=== PATIENT | male | born 1950 | race Caucasian/White ===

== ENCOUNTER 2018-05-26 10:10 | Emergency (ER) | payer MEDICARE, OTHER ==
--- NOTE | 2018-05-26 10:29 | ED.PDOC ---
History of Present Illness - General Chief Complaint: Blood Pressure Problem Stated Complaint: shari blood pressure Time Seen by Provider: 05/26/18 10:17 Source: patient Exam Limitations: no limitations - History of Present Illness Initial Comments: Stu Ovalle 68 y/o male stated that his blood pressure went up this AM systolic BP -200 and also stated that he had left shoulder discomfort which he had for the last several years then ekg done at his [facility] office showing-st segment straightening lateral leads.Has history of DM@ on insulin pump and HTN.Presently while in ER denies headache,blurry vision ,chest pains,his left shoulder feels fine.No diaphoresis ,no n/v,no sob. Timing/Duration: 7-24 hours Severity: moderate Location: shoulder Activities at Onset: none Prior Chest Pain/Cardiac Workup: no prior chest pain, cardiolye scan - 2012 Improving Factors: nothing Worsening Factors: nothing Nitro Today/Relief: no nitro taken today Aspirin Treatment Today: 325 mg x 1, provided by ED Associated Symptoms: denies symptoms Allergies/Adverse Reactions: Allergies Insulin Adverse Reaction (Verified 05/26/18 10:37) Home Medications: Ambulatory Orders Human Insulin Aspart [Novolog] 1 each SC DAILY 05/26/18 Lisinopril [Lisinopril] 20 mg PO BID 05/26/18 Ranitidine HCl [Zantac 75] 1 each PO DAILY 05/26/18 Simvastatin [Simvastatin] 40 mg PO DAILY 05/26/18 Review of Systems - Review of Systems Constitutional: States: no symptoms reported EENTM: States: no symptoms reported Respiratory: States: no symptoms reported Cardiology: States: no symptoms reported Gastrointestinal/Abdominal: States: no symptoms reported Genitourinary: States: no symptoms reported Musculoskeletal: States: see HPI Skin: States: no symptoms reported Neurological: States: no symptoms reported Past Medical History (General) - Patient Medical History Hx Hypertension: Yes Hx Diabetes: Yes Surgical History: other - righ carotid endarterectomy,shoulder,hemoorhoidectomy, vasectomy,feet,back,colonoscopy - Social History Hx Alcohol Use: No Hx Substance Use: No Hx Substance Use Treatment: No Hx Physical Abuse: No Hx Emotional Abuse: No Hx Suspected Abuse: No Family Medical History - Family History Mother Family History: Unknown Hx Family Hypertension: Yes - dad ,brothers Hx Cardiac Disease: Yes - dad,brothers-[place] Hx Family Diabetes: Yes - dad Physical Exam - Physical Exam General Appearance: Alert, Comfortable, No apparent distress Eyes, Ears, Nose, Throat Exam: normal ENT inspection, pharynx normal Neck: non-tender, full range of motion, supple, normal inspection Respiratory: chest non-tender, lungs clear, normal breath sounds, no respiratory distress Cardiovascular/Chest: normal peripheral pulses, regular rate, rhythm, no murmur Peripheral Pulses: radial,right: 2+, radial,left: 2+ Gastrointestinal/Abdominal: normal bowel sounds, non tender, soft, no organomegaly Extremity: normal range of motion, non-tender, normal inspection, no pedal edema , no calf tenderness Neurologic: alert, oriented x 3 Skin Exam: normal color, warm/dry Progress - Progress Progress: 05/26/18 11:28 Vital Signs - 8 hr 05/26/18 10:15 Temperature 97.3 F L Pulse Rate [ 63 pulse ox] Respiratory 16 Rate Blood Pressure 183/95 [Left Arm] O2 Sat by Pulse 98 Oximetry - Results/Orders Results/Orders: 05/26/18 10:30 IV Care:Saline Lock per Protoc QSHIFT EKG STAT Laboratory Results - last 24 hr 05/26/18 05/26/18 05/26/18 10:58 12:15 12:32 WBC 8.5 RBC 4.70 Hgb 14.0 Hct 42.7 MCV 91.0 MCH 29.8 MCHC 32.8 L RDW 15.0 H Plt Count 230 MPV 9.6 Absolute Neuts (auto) 6.50 Absolute Lymphs (auto) 1.10 Absolute Monos (auto) 0.70 Absolute Eos (auto) 0.10 Absolute Basos (auto) 0.10 Neutrophils % 76.2 Lymphocytes % 13.0 L Monocytes % 8.1 Eosinophils % 1.7 Basophils % 1.0 PT 9.2 INR 0.92 PTT (SP) 27.6 Sodium 136 Potassium 4.1 Chloride 102 Carbon Dioxide 28 Anion Gap 10.1 L BUN 19 H Creatinine 1.93 H BUN/Creatinine Ratio 9.8 L POC Glucose Random Glucose 186 H Serum Osmolality 279.1 Calcium 9.3 Magnesium 2.0 Total Bilirubin 0.6 Direct Bilirubin 0.1 Indirect Bilirubin 0.5 AST 23 ALT 18 Alkaline Phosphatase 65 Creatine Kinase 53 CK-MB (CK-2) 1.6 CK-MB (CK-2) % Not Reportable Troponin I < 0.02 < 0.02 B-Natriuretic Peptide 91.0 Serum Total Protein 7.0 Albumin 3.4 Urine Color Yellow Urine Appearance Clear Urine pH 7.0 Ur Specific [place] 1.015 Urine Protein 100 H Urine Glucose (UA) Negative Urine Ketones Negative Urine Blood Negative Urine Nitrite Negative Urine Bilirubin Negative Urine Urobilinogen 0.2 Ur Leukocyte Esterase Negative Urine RBC 0-1 Urine WBC 0 Ur Epithelial Cells 0 Urine Bacteria 0 05/26/18 14:51 WBC RBC Hgb Hct MCV MCH MCHC RDW Plt Count MPV Absolute Neuts (auto) Absolute Lymphs (auto) Absolute Monos (auto) Absolute Eos (auto) Absolute Basos (auto) Neutrophils % Lymphocytes % Monocytes % Eosinophils % Basophils % PT INR PTT (SP) Sodium Potassium Chloride Carbon Dioxide Anion Gap BUN Creatinine BUN/Creatinine Ratio POC Glucose 50 L Random Glucose Serum Osmolality Calcium Magnesium Total Bilirubin Direct Bilirubin Indirect Bilirubin AST ALT Alkaline Phosphatase Creatine Kinase CK-MB (CK-2) CK-MB (CK-2) % Troponin I B-Natriuretic Peptide Serum Total Protein Albumin Urine Color Urine Appearance Urine pH Ur Specific [place] Urine Protein Urine Glucose (UA) Urine Ketones Urine Blood Urine Nitrite Urine Bilirubin Urine Urobilinogen Ur Leukocyte Esterase Urine RBC Urine WBC Ur Epithelial Cells Urine Bacteria - EKG/XRAY/CT EKG: Sinus, nonspecific ST T wave Chg Comments: HR-62 XRAY: chest - no acute abnormality Departure - Departure Clinical Impression: Uncontrolled hypertension, Diabetes 1.5, managed as type 1, CKD (chronic kidney disease) stage 3, GFR 30-59 ml/min Limb pain Qualifiers: Extremity pain location: upper arm Laterality: left Qualified Code(s): M79.622 - Pain in left upper arm Time of Disposition: 15:33 Disposition: Admit Patient Condition: Fair Departure Forms: Patient Portal Self Enrollment Referrals: VIKKI CLEMENT MD [Primary Care Provider] - 1-2 Weeks Home Medications: Ambulatory Orders Human Insulin Aspart [Novolog] 1 each SC DAILY 05/26/18 Lisinopril [Lisinopril] 20 mg PO BID 05/26/18 Ranitidine HCl [Zantac 75] 1 each PO DAILY 05/26/18 Simvastatin [Simvastatin] 40 mg PO DAILY 05/26/18 Decision To Admit - Decistion To Admit Decision to Admit Reason: Admit from ER Decision to Admit Date: 05/26/18 - D/W -ana Norton;Festus Johnson -SEBLE/Hospitalist Decision to Admit Time: 15:34
--- NOTE | 2018-05-26 10:44 | RAD ---
Procedure: XR CHEST 1 VIEW Exam Date: 05/26/2018 Ordering Provider: Oswald Contreras Clinical Indication: high blood pressure Comparison: 02/02/2016 Findings: Cardiomediastinal silhouette is within normal limits. No focal lung consolidation. No pleural effusion. No pneumothorax. No acute osseous abnormality. Impression: 1. No acute abnormality in the chest. Electronically signed by: Shmuel Calderon MD 05/26/2018 10:42 AM [facility]
[2018-05-26] MEDS: amLODIPine BESYLATE 5 MG TAB PO ONE (11:48)
[2018-05-26] MEDS: ASPIRIN (CHEWABLE) 81 MG TAB PO ONE (11:48)
[2018-05-26 15:22] VITALS: O2SAT 98
[2018-05-26] MEDS: hydrALAZINE HCl 20 MG/ML VIAL IV ONE (15:35)
[2018-05-26 17:14] VITALS: BP 176/82; TEMP 98.2
== END 2018-05-26 17:41 | disposition short-term general hospital (02) ==
LOC: ER 10:10 → MS 15:52 → UNDOADMOB 15:52 → ER 17:41
DX: I12.9 Hypertensive chronic kidney disease with stage 1 through stage 4 chronic kidney disease, or unspecified chronic kidney disease (principal); M25.512 Pain in left shoulder; E10.22 Type 1 diabetes mellitus with diabetic chronic kidney disease; N18.3 Chronic kidney disease, stage 3 (moderate); Z88.8 Allergy status to other drugs, medicaments and biological substances; Z79.899 Other long term (current) drug therapy; Z79.4 Long term (current) use of insulin

== ENCOUNTER → 2018-12-23 | Outpatient (CLI) | payer MEDICARE, OTHER | LOC: GMAE 15:01 | PROVIDERS: ATTEND Family Medicine | DX: R10.13 Epigastric pain (principal) ==

== ENCOUNTER 2019-01-23 05:38 | Day surgery (SDC) | payer MEDICARE, OTHER ==
[2019-01-23] MEDS ORDERED: LACTATED RINGERS 1,000 ML ONE (06:52)
[2019-01-23 07:44] VITALS: BP 151/65; O2SAT 95
== END 2019-01-23 08:30 | disposition home or self-care (01) ==
LOC: AMB 05:38
PROVIDERS: ATTEND Surgery
DX: R10.9 Unspecified abdominal pain (principal); E78.5 Hyperlipidemia, unspecified; I10 Essential (primary) hypertension; E11.9 Type 2 diabetes mellitus without complications; F17.210 Nicotine dependence, cigarettes, uncomplicated; Z88.8 Allergy status to other drugs, medicaments and biological substances; Z79.82 Long term (current) use of aspirin; Z79.4 Long term (current) use of insulin; Z79.899 Other long term (current) drug therapy; Z53.9 Procedure and treatment not carried out, unspecified reason
CPT/HCPCS: 36416; 82948; J7120

== ENCOUNTER 2019-04-06 11:08 | Emergency (ER) | payer MEDICARE, OTHER ==
[2019-04-06 11:48] VITALS: TEMP 98.1
--- NOTE | 2019-04-06 12:13 | ED.PDOC ---
History of Present Illness - General Chief Complaint: Neuro Symptoms/Deficits Stated Complaint: Altered mental status Time Seen by Provider: 04/06/19 11:17 - History of Present Illness Initial Comments: 69-year-old male positive past history presents via EMS to the ED complaining of 3 days of expressive aphasia. He describes it as being able answer questions and know what he wants to say being able to see it in his mind but unable to express it verbally. Denies any focal weakness. Patient denies any history of stroke. He denies any associated chest pain, shortness of breath, fever/chills, nausea/vomiting, and/or acute changes in bowels or urination. Patient is otherwise healthy with no other signs symptoms or complaints. Allergies/Adverse Reactions: Allergies Insulin Adverse Reaction (Verified 05/26/18 15:48) patient states causes itching, takes Zantac BID for reaction Home Medications: Ambulatory Orders Human Insulin Aspart [Novolog] 1 each SC DAILY 05/26/18 Lisinopril 20 mg PO BID 05/26/18 Ranitidine HCl [Zantac 75] 1 each PO DAILY 05/26/18 Simvastatin 40 mg PO DAILY 05/26/18 Review of Systems - Review of Systems Constitutional: Denies: chills, fever EENTM: Denies: blurred vision, double vision Respiratory: Denies: cough, short of breath Cardiology: Denies: chest pain, palpitations Gastrointestinal/Abdominal: Denies: abdominal pain, nausea, vomiting Genitourinary: Denies: dysuria, frequency Musculoskeletal: Denies: back pain, muscle pain Skin: Denies: change in color, rash Neurological: States: other - expressive aphasia by patient description. Denies: headache, numbness Endocrine: Denies: flushing Past Medical History (General) - Patient Medical History Hx Stroke: No Hx Asthma: Yes Hx Cardiac Disorders: Yes - Hypercholesterolemia Hx Congestive Heart Failure: No Hx Hypertension: Yes Hx Thyroid Disease: Yes - Hyperthyroidism Hx Diabetes: Yes Hx Gastroesophageal Reflux: Yes Hx MRSA: No - Vaccination History Hx Influenza Vaccination: No Hx Pneumococcal Vaccination: Yes - Social History Hx Tobacco Use: Yes Hx Alcohol Use: Yes Hx Substance Use: No Hx Substance Use Treatment: No Hx Depression: No Hx Physical Abuse: No Hx Emotional Abuse: No Hx Suspected Abuse: No Family Medical History - Family History Mother Family History: Unknown Hx Family Hypertension: Yes - dad ,brothers Hx Cardiac Disease: Yes - dad,brothers-[place] Hx Family Diabetes: Yes - dad Physical Exam - Physical Exam General Appearance: Alert, Anxious Eye Exam: bilateral normal ENT Exam: normal ENT inspection Neck: full range of motion, supple Respiratory: lungs clear, normal breath sounds, no respiratory distress, no accessory muscle use Cardiovascular/Chest: normal peripheral pulses, regular rate, rhythm, no edema, no JVD, no murmur Gastrointestinal/Abdominal: normal bowel sounds, non tender, soft Back Exam: normal inspection, no CVA tenderness Extremities Exam: non-tender, normal range of motion Mental Status: alert, oriented x 3 customs compliance specialist Exam: normal hearing, normal speech, PERRL Coordination/Gait: normal finger to nose, negative Romberg's sign Motor/Sensory: no motor deficit, no sensory deficit, no pronator drift Skin Exam: normal color, warm/dry Comments: NIHSS scale score:1 Progress - Progress Progress: Dr. Ronald Mei D.O. [id number] presents with concern for stroke and hypertensive urgency/emergency. We'll order labs, CT head as well as CT angiography of head, EKG, start nicardipine drip, and continue to monitor/process. Patient will likely require admission versus transfer. EKG: read @1136: Sinus isidra @52, nl axis, intervals wnl, no ST elevations/depressions, nonspecific ST/T-wave changes. No STEMI. No significant changes concerning for acute ischemia when compared with 05/26/2018 EKG. 04/06/19 12:14 04/06/19 13:19 Consulted with oncall physician for accepting pt to ICU at [facility]. We discussed pt's case in ED along with current findings and diagnosis of acute ICH and hypertensive emergency. He accepts pt for transfer. - Results/Orders Results/Orders: 04/06/19 11:48 Hold Metformin x 48Hrs [id number] 04/06/19 12:00 EKG STAT Laboratory Results - last 24 hr 04/06/19 04/06/19 04/06/19 11:39 11:39 11:39 WBC 9.2 RBC 4.07 L Hgb 12.0 L Hct 36.5 L MCV 89.6 MCH 29.4 MCHC 32.8 L RDW 15.9 H Plt Count 213 MPV 9.8 Absolute Neuts (auto) 7.50 H Absolute Lymphs (auto) 0.90 L Absolute Monos (auto) 0.70 Absolute Eos (auto) 0.10 Absolute Basos (auto) 0.00 Neutrophils % 81.0 H Lymphocytes % 9.5 L Monocytes % 8.1 Eosinophils % 0.9 L Basophils % 0.5 Sodium 136 Potassium 4.1 Chloride 99 L Carbon Dioxide 23 Anion Gap 18.1 H BUN 32 H Creatinine 3.34 H BUN/Creatinine Ratio 9.6 L POC Glucose Random Glucose 231 H Serum Osmolality 286.2 Calcium 8.9 Magnesium 2.1 Total Bilirubin 0.9 AST 17 ALT 19 Alkaline Phosphatase 91 Troponin I Serum Total Protein 7.1 Albumin 3.3 Globulin 3.8 H Albumin/Globulin Ratio 0.9 L TSH 4.71 Urine Color Urine Appearance Urine pH Ur Specific [place] Urine Protein Urine Glucose (UA) Urine Ketones Urine Blood Urine Nitrite Urine Bilirubin Urine Urobilinogen Ur Leukocyte Esterase Urine RBC Urine WBC Ur Epithelial Cells Amorphous Sediment Urine Bacteria 04/06/19 04/06/19 04/06/19 11:39 11:44 11:48 WBC RBC Hgb Hct MCV MCH MCHC RDW Plt Count MPV Absolute Neuts (auto) Absolute Lymphs (auto) Absolute Monos (auto) Absolute Eos (auto) Absolute Basos (auto) Neutrophils % Lymphocytes % Monocytes % Eosinophils % Basophils % Sodium Potassium Chloride Carbon Dioxide Anion Gap BUN Creatinine BUN/Creatinine Ratio POC Glucose 223 H Random Glucose Serum Osmolality Calcium Magnesium Total Bilirubin AST ALT Alkaline Phosphatase Troponin I 0.02 Serum Total Protein Albumin Globulin Albumin/Globulin Ratio TSH Urine Color Yellow Urine Appearance Clear Urine pH 5.5 Ur Specific [place] 1.025 Urine Protein >=300 H Urine Glucose (UA) 100 H Urine Ketones Negative Urine Blood Trace-intact H Urine Nitrite Negative Urine Bilirubin Negative Urine Urobilinogen 0.2 Ur Leukocyte Esterase Negative Urine RBC 1-3 Urine WBC 0-1 Ur Epithelial Cells 0-1 Amorphous Sediment Trace Urine Bacteria Rare all CT imaging and radiology reads reviewed. Stroke Information - Onset of Symptoms Symptoms of Stroke: Aphasia Stroke Onset of Symptoms Date: 04/03/19 - Contraindications t-PA Contraindication: Medical Contraindication, Drug Tx Not Indicated Departure - Departure Clinical Impression: Thalamic hemorrhage with stroke, Hypertensive emergency Time of Disposition: 12:48 Disposition: Transfer to Hospital Departure Forms: ED Discharge - Pt. Copy, Patient Portal Self Enrollment Referrals: VIKKI CLEMENT MD [Primary Care Provider] - 1-2 Weeks Home Medications: Ambulatory Orders Human Insulin Aspart [Novolog] 1 each SC DAILY 05/26/18 Lisinopril 20 mg PO BID 05/26/18 Ranitidine HCl [Zantac 75] 1 each PO DAILY 05/26/18 Simvastatin 40 mg PO DAILY 05/26/18 Critical Care Note - Critical Care Note Total Time (mins): 131 Transfer to Outside Facility - Transfer Information Accepting Facility: [facility] Reason for Transfer: specialized care not available - MOT signed
--- NOTE | 2019-04-06 12:44 | CT ---
EXAM DESCRIPTION: Head CLINICAL HISTORY: ams, HTN sbp >200 COMPARISON: None TECHNIQUE: Noncontrast transaxial CT images of the head are obtained from base to vertex. This exam was performed according to our departmental dose-optimization program, which includes automated exposure control, adjustment of the mA and/or kV according to patient size and/or use of iterative reconstruction technique. FINDINGS: The midline structures are not displaced. Sulci are age-appropriate. There are areas of decreased attenuation in the periventricular white matter and the white matter of the centrum semiovale. Heterogeneous increased attenuation with Hounsfield units of 50-65 are seen in the mid left thalamus measuring 1.6 x 1.3 cm. Mild surrounding decreased attenuation is seen. No significant narrowing of the adjacent third ventricle. Moderate ulcerations of the intracranial carotid arteries.. Bone windows show no evidence of depressed skull fracture. The visualized paranasal sinuses are unremarkable. IMPRESSION: 1. Heterogeneous area of increased attenuation in the left thalamus likely represents acute hemorrhage with mild surrounding edema. Consider further evaluation with MRI/MRA. 2. Age-appropriate atrophy with evidence of old small vessel ischemic type changes seen. Findings on this exam were called to Leonard Huber 04/06/2019 12:41 PM CDTCDT. Electronically signed by: Michael Magallanes MD 04/06/2019 12:42 PM CDT
[2019-04-06] MEDS ORDERED: SODIUM CHLORIDE 0.9% 250ML 250 ML ONE (12:57)
[2019-04-06] MEDS ORDERED: niCARdipine HCL 2.5 MG/ML AMP IVPB ONE (12:57)
[2019-04-06] MEDS ORDERED: niCARdipine HCL 25 MG in SODIUM CHLORIDE 0.9% 250ML 240 ML IVPB SCH (13:00)
[2019-04-06 14:05] VITALS: BP 168/71; O2SAT 95
== END 2019-04-06 14:05 | disposition short-term general hospital (02) ==
LOC: ER 11:08
DX: I62.9 Nontraumatic intracranial hemorrhage, unspecified (principal); R47.01 Aphasia; I16.1 Hypertensive emergency; R00.1 Bradycardia, unspecified; J45.909 Unspecified asthma, uncomplicated; E78.00 Pure hypercholesterolemia, unspecified; E11.9 Type 2 diabetes mellitus without complications; K21.9 Gastro-esophageal reflux disease without esophagitis; E05.90 Thyrotoxicosis, unspecified without thyrotoxic crisis or storm; Z87.891 Personal history of nicotine dependence; Z79.4 Long term (current) use of insulin; Z79.899 Other long term (current) drug therapy; Z88.8 Allergy status to other drugs, medicaments and biological substances
CPT/HCPCS: 36415; 36416; 70450; 80053; 81001; 82948; 83735; 84443; 84484; 85025; 93005; J7050

== ENCOUNTER → 2019-05-01 | Outpatient (CLI) | payer MEDICARE, OTHER ==
--- NOTE | 2019-05-02 11:35 | MRI ---
EXAM DESCRIPTION: Brain w/o Contrast: MRI. CLINICAL HISTORY: hemorrhagic stroke COMPARISON: CT scan of the head 06 April 2019. TECHNIQUE: Multiplanar, high-field MRI unit, multiple diffusion sequences, multiple conventional sequences without contrast. FINDINGS: Partially hyperdense and complex focal FLAIR and T2-weighted signal in the anterior left thalamus and the posterior limb of the left internal capsule.. No hemorrhage, no cerebral edema, no mass-effect. No diffusion restriction. Low signal with faint blooming on the T2*gradient sequence. No abnormal signal in the left lateral basal ganglia, head of the left caudate nucleus, and anterior limb left internal capsule. No hemorrhage, mass effect, or diffusion restriction. These structures are unremarkable in the contralateral right hemisphere. Diffuse hyperintense T1 and T2-weighted signal in the bilateral periventricular white matter at the level of the ventricles and the [place] radiata and bilateral centrum semiovale. Also punctate lesions in the subcortical white matter of the occipital lobes and the subcortical white matter of the frontal and parietal lobes at the supraventricular level. No hemorrhage, mass effect, or diffusion restriction normal signal in the brainstem and cerebellar hemispheres. No hemorrhage, no parenchymal edema, no mass-effect. No diffusion restriction. Concordance of the diffusion and non-diffusion sequences with no diffusion restriction. Cortical sulci, ventricles, and other CSF spaces, and the subdural spaces are normally configured for patients age.. No effacement or displacement. No midline shift. No extra-axial hemorrhage. Minimal edema in the bilateral distal optic nerve sheaths abutting the optic globes. Normal flow signal void in the major vessels of the [place], and the venous sinuses. IACs are symmetric bilaterally. Normal signal in the bilateral mastoid air cells. No mass effect in the bilateral cerebellopontine angles. Pituitary gland occupies most of the sella. Base of the cerebellar tonsils is at the level of the foramen magnum. No significant abnormalities in the paranasal sinuses.. The bony calvarium is intact. IMPRESSION: 1. Resolving hemorrhagic stroke in the anterior left thalamus and the posterior limb of the left internal capsule. Low signal on T2*gradient sequence. Signal on other sequences indicating chronic hemorrhagic stroke. No mass effect. No diffusion restriction. 2. Bilateral chronic white matter abnormalities periventricular and centrum semiovale relatively symmetric. No diffusion restriction. 3. No acute or subacute abnormalities on MRI noncontrast diffusion. Electronically signed by: Nestor Bundy MD 05/02/2019 11:34 AM CDT
== END ==
LOC: MRI 10:00
PROVIDERS: ATTEND Psychiatry & Neurology Neurology
DX: I62.9 Nontraumatic intracranial hemorrhage, unspecified (principal); I63.9 Cerebral infarction, unspecified; R90.82 White matter disease, unspecified

== ENCOUNTER → 2019-05-20 | Outpatient (CLI) | payer MEDICARE, OTHER ==
--- NOTE | 2019-05-20 17:06 | CT ---
EXAM DESCRIPTION: Abdoment/Pelvis w/o Contrast CLINICAL HISTORY: 69 years, Male, CHRONIC KIDNEY DISEASE COMPARISON: None. TECHNIQUE: CT of the abdomen and pelvis is performed without IV or p.o. contrast. Multiplanar reconstructions were obtained. Renal stone protocol. FINDINGS: Partially limited evaluation without intravenous contrast. Bibasilar dependent atelectasis. . The Liver, spleen, and pancreas are unremarkable. The gallbladder is normal without calcified gallstones. Mild bilateral renal atrophy with normal contour of the bilateral kidneys. Mild bilateral nonspecific perinephric fat stranding, possibly associated with senescent changes. Duplex left renal collecting system with left upper pole ureter convening with the lower collecting system at the level of the renal pelvis. Bilateral renal hypodensities, some of which are too small to characterize, statistically representing cysts. No hydronephrosis, nephrolithiasis, or perinephric fluid collection. The ureters are unremarkable without stone or obstruction. Mild to moderate left colonic diverticulosis without evidence of diverticulitis No focal bowel wall thickening or bowel obstruction. The appendix is normal. No free fluid within the pelvis. Mildly enlarged prostate. Mild bladder wall thickening likely related to partially decompressed state. No lymphadenopathy. No acute osseous abnormality. Scattered areas of bony demineralization. IMPRESSION: 1. Mild bilateral renal atrophy without hydronephrosis, nephrolithiasis, or perinephric fluid collection. 2. Mild prostatomegaly. 3. Mild to moderate left colonic diverticulosis without diverticulitis. This exam was performed according to our departmental dose-optimization program, which includes automated exposure control, adjustment of the mA and/or kV according to patient size and/or use of iterative reconstruction technique. Electronically signed by: Al Frances DO 05/20/2019 5:04 PM [facility]
== END ==
LOC: CT 12:08
PROVIDERS: ATTEND Internal Medicine Nephrology
DX: N18.4 Chronic kidney disease, stage 4 (severe) (principal); N40.0 Benign prostatic hyperplasia without lower urinary tract symptoms; K57.30 Diverticulosis of large intestine without perforation or abscess without bleeding

== ENCOUNTER → 2019-08-03 | Outpatient (CLI) | payer MEDICARE, OTHER | LOC: GMAE 11:08 | PROVIDERS: ATTEND Family Medicine | DX: Z12.5 Encounter for screening for malignant neoplasm of prostate (principal); I10 Essential (primary) hypertension; E11.9 Type 2 diabetes mellitus without complications; E78.2 Mixed hyperlipidemia | CPT/HCPCS: 84443; G0103 ==

== ENCOUNTER → 2019-12-30 | Outpatient (CLI) | payer MEDICARE, OTHER ==
--- NOTE | 2019-12-30 08:24 | CT ---
EXAM DESCRIPTION: Abdomen/Pelvis w/o Contrast CLINICAL HISTORY: 69 years, 69 years, Male, Male, CHRONIC KIDNEY DISEASE COMPARISON: May 20, 2019 TECHNIQUE: CT of the abdomen and pelvis is performed according to our non contrast protocol This exam was performed according to our departmental dose-optimization program, which includes automated exposure control, adjustment of the mA and/or kV according to patient size and/or use of iterative reconstruction technique. FINDINGS: Left lung base is essentially normal. Right lung base demonstrates persistent linear scarring in the posterior costophrenic angle with clear lung bases otherwise Unenhanced liver is normal in appearance without cystic or solid abnormality with normal distention of the gallbladder without visible stones or wall thickening or ductal dilation. A small normal spleen noted. Pancreas appears modestly atrophic. No adrenal mass is seen. Aortic atherosclerotic calcification without aneurysm is present. Small normal size retroperitoneal lymph nodes and normal vena cava noted. Each kidney is estimated between 99.5 cm in size with normal cortical thickness on the right with approximate 2 cm hypodense cyst upper pole right kidney and 1.5 cm hypodense cyst lower pole right kidney noted. Moderately extensive right renal vascular calcification is present without hydronephrosis or caliectasis or intrarenal stone disease. Left kidney demonstrates mild or borderline cortical thinning with approximate 12 mm hypodense probable cyst laterally involving the mid to lower pole. Mild renal vascular calcification is present. Intrarenal calculi are not apparent without hydronephrosis or obstruction. Small and large bowel caliber is normal. Colonic diverticulosis right and left is noted. No mesenteric mass or ascites seen. No acute diverticulitis or obstruction or significant ileus noted. Moderate stool in the right colon suggests the possibility of an element of constipation. Prostatic enlargement with prostatic calculi noted with incomplete distention of the thick-walled appearing bladder. A distinct or definite bladder mass on noncontrast imaging not apparent. No significant inguinal adenopathy noted. Tiny fat-containing inguinal hernias bilaterally noted. The anterior abdominal wall is intact. IMPRESSION: 1. Borderline right and mild left renal atrophic changes and cortical thinning with small to modest bilateral renal cyst, unchanged from prior study. Moderate right renal vascular calcification without evidence of nephrolithiasis or hydronephrosis or solid renal mass on either side on noncontrast imaging. 2. Prostatic hypertrophy and calcification. 3. Colonic diverticulosis without diverticulitis. An element of constipation should be considered. 4. Mild scarring posterior right lung base, unchanged Electronically signed by: Kota Dietz MD 12/30/2019 8:23 AM CDT
== END ==
LOC: CT 08:00
PROVIDERS: ATTEND Internal Medicine Nephrology
DX: N18.5 Chronic kidney disease, stage 5 (principal); N26.1 Atrophy of kidney (terminal); I70.1 Atherosclerosis of renal artery; N28.1 Cyst of kidney, acquired; K57.30 Diverticulosis of large intestine without perforation or abscess without bleeding; N40.0 Benign prostatic hyperplasia without lower urinary tract symptoms; N42.0 Calculus of prostate; J98.4 Other disorders of lung